=== PATIENT | female | born 1980 | race Caucasian/White ===

== ENCOUNTER 2021-12-14 11:09 | Emergency (ER) | payer BC, OTHER ==
[2021-12-14 11:29] VITALS: BMI 36.3
[2021-12-14] MEDS ORDERED: SODIUM CHLORIDE 0.9% 500 ML INFUS.BAG IV ONE ×2 (12:51→15:17)
[2021-12-14] MEDS ORDERED: ONDANSETRON 4 MG/2 ML VIAL IVPUSH ONE (12:51)
[2021-12-14] MEDS ORDERED: FAMOTIDINE 20 MG/50 ML IVPB 20 MG/50 ML MG IVPB ONE ×2 (12:51→12:58)
[2021-12-14] MEDS ORDERED: ONDANSETRON 4 MG/2 ML VIAL ONE ×2 (12:58→16:41)
[2021-12-14 13:23] LABS: HEMATOCRIT 49.3 % (32.4-45.2); HEMOGLOBIN 16.1 GM/dL (10.7-15.3); MCH 26.1 pg (25.7-33.7); MCHC 32.6 g/dl (32.0-36.0); MEAN CELL VOLUME 80.1 fl (80-96); MEAN PLT VOLUME 7.3 fl (7.5-11.1); PLATELET COUNT 450 10^3/uL (134-434); RBC 6.15 M/mm3 (3.60-5.2); RDW 15.6 % (11.6-15.6); WHITE BLOOD COUNT 10.9 K/mm3 (4.0-10.0)
[2021-12-14 13:38] LABS: CHLORIDE 103 mmol/L (98-107); SODIUM 140 mmol/L (136-145)
[2021-12-14 13:40] LABS: ALBUMIN 4.3 g/dl (3.4-5.0); ANION GAP 16 MMOL/L (8-16); BLOOD UREA NITROGEN 23.3 mg/dL (7-18); CALCIUM 9.5 mg/dL (8.5-10.1); CO2 20 mmol/L (21-32); GLUCOSE,RANDOM 95 mg/dL (74-106); LIPASE 118 U/L (73-393)
[2021-12-14 13:43] LABS: CREATININE 1.1 mg/dL (0.55-1.3)
[2021-12-14 13:45] LABS: BILIRUBIN,TOTAL 3.3 mg/dL (0.2-1); TOT PROT 8.3 g/dl (6.4-8.2)
[2021-12-14 13:46] LABS: ALK PHOS 88 U/L (45-117)
[2021-12-14 14:13] LABS: SGOT/AST 9149 U/L (15-37); SGPT/ALT 7612 U/L (13-61)
[2021-12-14] MEDS ORDERED: ONDANSETRON 4 MG/2 ML VIAL IVPUSH PRN (15:07)
[2021-12-14 15:45] LABS: EPI CELLS >36 /uL (0-25.1); HYALINE CASTS 13 /uL (0-3.1); URINE APPEARANCE TURBID; URINE BILIRUBIN 1+ (NEGATIVE); URINE COLOR DK YELLOW; URINE GLUCOSE (UA) NEGATIVE (NEGATIVE); URINE KETONE 4+ (NEGATIVE); URINE LEUK ESTERASE NEGATIVE (NEGATIVE); URINE NITRITE NEGATIVE (NEGATIVE); URINE PROTEIN 4+ (NEGATIVE); URINE RBC 15 /uL (0-23.9); URINE WBC 24 /uL (0-25.8)
[2021-12-14 15:56] LABS: ANISOCYTOSIS 0; MACROCYTOSIS 0
[2021-12-14 16:08] LABS: GAMMA GLUTAMYL TRANSPEPTIDASE 100 U/L (5-85)
[2021-12-14 16:12] LABS: CHOLESTEROL 129 mg/dL (50-200)
[2021-12-14 16:40] LABS: URINE BACTERIA NONE SEEN /uL (0-1359)
[2021-12-14 16:47] LABS: LDH > 4000 U/L (84-246); TRIGLYCERIDES 54 mg/dL (0-150)
[2021-12-14 17:46] LABS: INR 2.34 (0.83-1.09); PROTHROMBIN TIME (PATIENT) 27.1 SEC (9.7-13.0)
[2021-12-14] MEDS ORDERED: ACETYLCYSTEINE IVPB ONE ×3 (18:01)
[2021-12-14] MEDS ORDERED: DEXTROSE 5% IVPB ONE ×3 (18:01)
[2021-12-14] MEDS ORDERED: WATER IVPB ONE ×3 (18:01)
[2021-12-14 19:32] VITALS: BP 128/72; PULSE 91; RESP 20; TEMP 98.1
== END 2021-12-14 20:39 | disposition short-term general hospital (02) ==
LOC: JER 11:09
PROC: 3E033GC Introduction of Other Therapeutic Substance into Peripheral Vein, Percutaneous Approach (ICD-10-PCS; principal; 2021-12-14)
PROC: 3E033GC Introduction of Other Therapeutic Substance into Peripheral Vein, Percutaneous Approach (ICD-10-PCS; 2021-12-14)
PROC: 3E033GC Introduction of Other Therapeutic Substance into Peripheral Vein, Percutaneous Approach (ICD-10-PCS; 2021-12-14)
DX: K72.00 Acute and subacute hepatic failure without coma (principal)
CPT/HCPCS: 0241U-QW; 36415; 76705-TC; 80053; 80307; 81003; 82465; 82977; 83615; 83690; 84478; 84702; 85025; 85610; 85730; 86704; 86708; 86803; 87086; 87340; 87517; 99285-25

== ENCOUNTER 2023-05-12 12:56 | Emergency (ER) | payer BC, OTHER ==
[2023-05-12 13:29] VITALS: BP 151/97; PULSE 80; RESP 16; TEMP 98.9; BMI 36.0
[2023-05-12] MEDS ORDERED: MAG HYDROX/AL HYDROX/SIMETH 30 ML UNIT-DOSE CUP PO ONE (13:39)
[2023-05-12] MEDS ORDERED: FAMOTIDINE 20 MG/50 ML IVPB 20 MG/50 ML MG IVPB ONE ×2 (13:39→13:58)
[2023-05-12] MEDS ORDERED: PANTOPRAZOLE SODIUM 40 MG VIAL IVPUSH ONE (13:39)
[2023-05-12] MEDS ORDERED: SODIUM CHLORIDE 0.9% 500 ML INFUS.BAG IV ONE (13:39)
[2023-05-12] MEDS ORDERED: PANTOPRAZOLE SODIUM 40 MG VIAL ONE (13:58)
[2023-05-12] MEDS ORDERED: MAG HYDROX/AL HYDROX/SIMETH 30 ML UNIT-DOSE CUP ONE (13:58)
[2023-05-12 14:26] LABS: HEMATOCRIT 47.4 % (32.4-45.2); HEMOGLOBIN 15.9 G/dL (10.7-15.3); MCH 27.3 pg (25.7-33.7); MCHC 33.5 g/dl (32.0-36.0); MEAN CELL VOLUME 81.5 fl (80-96); MEAN PLT VOLUME 7.8 fl (7.5-11.1); RBC 5.81 10^6/uL (3.60-5.2); RDW 14.5 % (11.6-15.6); WHITE BLOOD COUNT 6.4 10^3/uL (4.0-10.8)
[2023-05-12 14:27] LABS: ALBUMIN 4.5 g/dl (3.4-5.0); BILIRUBIN,TOTAL 0.6 mg/dl (0.2-1); CALCIUM 9.5 mg/dl (8.5-10.1); CREATININE 0.8 mg/dl (0.6-1.3); POTASSIUM 4.3 mmol/L (3.5-5.1); TOT PROT 7.2 g/dl (6.4-8.2)
[2023-05-12 14:30] LABS: PLATELET ESTIMATE ADEQUATE
== END 2023-05-12 15:04 | disposition home or self-care (01) ==
LOC: FER 12:56
PROC: 3E033GC Introduction of Other Therapeutic Substance into Peripheral Vein, Percutaneous Approach (ICD-10-PCS; principal; 2023-05-12)
PROC: 3E033GC Introduction of Other Therapeutic Substance into Peripheral Vein, Percutaneous Approach (ICD-10-PCS; 2023-05-12)
DX: K29.00 Acute gastritis without bleeding (principal); R10.13 Epigastric pain
CPT/HCPCS: 36415; 80053; 83690; 84703; 85025; 93005; 99284-25